=== PATIENT | female | born 1975 | race Caucasian/White ===

== ENCOUNTER 2017-05-24 20:33 | Emergency (ER) | payer MEDICAID ==
[~2017-05-24] VITALS: Ht 157.5 cm; Wt 57.6 kg
[~2017-05-24 20:33] MED LIST: ALPR0.5T8 PO; PANT40TA2 PO
--- NOTE | 2017-05-24 22:30 | NUR ---
Rox blank in ED - 05/24/17 at 2250 by [facility] per KJ mckeon, evans catheter removed. pt tolerated well
--- NOTE | 2017-05-24 22:49 | NUR ---
Rox blank in ED - 05/24/17 at 2253 by [facility] Patient discharged to home in stable conditon. Written and verbal after care instructions given with RX. Patient verbalizes understanding of instructions.
--- NOTE | 2017-05-24 22:54 | NUR ---
Patient discharged to home in stable conditon. Written and verbal after care instructions given with RX Patient verbalizes understanding of instructions.
== END 2017-05-24 22:58 | disposition home or self-care (01) ==
LOC: ER 20:33
DX: J20.8 Acute bronchitis due to other specified organisms (principal); B96.89 Other specified bacterial agents as the cause of diseases classified elsewhere; D64.9 Anemia, unspecified
CPT/HCPCS: A4663